=== PATIENT | female | born 1980 | race Caucasian/White ===

== ENCOUNTER 2016-12-10 18:35 | Emergency (ER) | payer OTHER ==
[~2016-12-10 18:35] MED LIST: AFRIN NASAL SPR15 ML; ALBUTEROL17 GM INH; BACITRACIN30 GM TOP; BENZONATATE PO; CLARITIN10 MG PO; IBUPROFEN PO; MUCINEX DM1 TAB.SR . PO; SUDAFED PO; TYLENOL #3 PO; ULTRAM PO; VOLTAREN50 MG PO; VOLTAREN75 MG PO; ZITHROMAX 250MG PO; ZITHROMAX PO; ZOLOFT; ZOLOFT PO; ZOLOFT100 MG PO; ZYRTEC10 M2 PO; [UNRECOGNIZED DRUG - OTHER]
== END 2016-12-10 18:44 | disposition home or self-care (01) ==
LOC: SED 18:35
DX: H10.33 Unspecified acute conjunctivitis, bilateral (principal); Z88.0 Allergy status to penicillin
CPT/HCPCS: 99282

== ENCOUNTER 2017-03-27 15:27 | Emergency (ER) | payer OTHER ==
[~2017-03-27] VITALS: Ht 167.6 cm; Wt 136.1 kg
== END 2017-03-27 15:58 | disposition home or self-care (01) ==
LOC: SED 15:27
DX: J06.9 Acute upper respiratory infection, unspecified (principal); Z88.0 Allergy status to penicillin; Z79.899 Other long term (current) drug therapy
CPT/HCPCS: 99283

== ENCOUNTER 2017-03-31 19:50 | Emergency (ER) | payer OTHER ==
[~2017-03-31] VITALS: Ht 167.6 cm; Wt 136.1 kg
== END 2017-03-31 20:47 | disposition home or self-care (01) ==
LOC: SED 19:50
DX: J01.90 Acute sinusitis, unspecified (principal); F41.9 Anxiety disorder, unspecified; Z98.51 Tubal ligation status; Z79.899 Other long term (current) drug therapy; Z88.0 Allergy status to penicillin
CPT/HCPCS: 99283